=== PATIENT | female | born 2005 | race African-American/Black ===

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

== ENCOUNTER 2024-07-23 17:30 | Emergency (ER) | payer OTHER ==
[2024-07-23] MEDS ORDERED: Dicyclomine 20 MG TAB ONE (18:41)
[2024-07-23 18:47] LABS: Pregnancy Test - Urine (BHCG) POSITIVE (Negative)
[2024-07-23 18:48] LABS: Pregu Control Background? CLEAR/WHITE (CLR/WHITE); Pregu Control Bar Appear? YES (CONTROL BAR); Specific Gravity 1.025 (1.002-1.036)
[2024-07-23 18:48] LABS: Bilirubin Negative (Negative); Blood, Urine Negative (Negative); Clarity Clear (Clear); Glucose, Urine (Dipstick) Negative (Negative); Ketone, Urine Negative (Negative); Leukocyte Moderate (Negative); Nitrite Negative (Negative); Protein, Urine (Dipstick) Negative (Neg-Trace); Specific Gravity, Urine 1.015 (1.005-1.030); Urobilinogen 0.2 mg/dL (Less than 2)
[2024-07-23 19:16] LABS: CAUTI Indications for Culture Dysuria,urgency,freq; Transitional Epithelial 0-3 HPF (None Seen); WBC/HPF 21-50 HPF (0-3)
[2024-07-23 19:17] LABS: Bacteria/HPF 2+ HPF (None Seen); Renal Epithelial 0-3 HPF (None Seen)
[2024-07-23 19:20] LABS: Urine Culture Reflex Yes Yes
== END 2024-07-23 19:25 | disposition home or self-care (01) ==
LOC: NAV ERS 17:30
DX: O23.41 Unspecified infection of urinary tract in pregnancy, first trimester (principal); N39.0 Urinary tract infection, site not specified; Z3A.01 Less than 8 weeks gestation of pregnancy
CPT/HCPCS: 81001; 81025; 87086; 99284